=== PATIENT | male | born 1975 | race Caucasian/White ===

== ENCOUNTER 2025-03-29 16:04 | Inpatient (IN) ==
[2025-03-29 17:10] LABS: Hematocrit (blood only) 46.8 % (42.0-52.0); Hemoglobin 16.7 g/dL (14.0-18.0); Immature Granulocytes # (auto) 0.02 K/uL (0.01-0.20); Immature Granulocytes % (auto) 0.2 %; Mean Corpuscular Hemoglobin 29.7 pg (25.0-34.0); Mean Corpuscular Volume 83.1 fL (80.0-100.0); Platelet Count 290 K/uL (130-400); RDW Standard Deviation 36.4 fL (36.4-46.3); Red Blood Count 5.63 M/uL (4.70-6.10); White Blood Count 8.77 K/ul (4.8-10.8)
[2025-03-29 17:39] LABS: Alanine Aminotransferase 22.0 U/L (7-52); Albumin Globulin Ratio 1.1 (0.9-2); Albumin Level 3.8 gm/dl (3.4-5.0); Alkaline Phosphatase 94.0 U/L (34-104); Anion Gap 8.0 (3-11); Bilirubin,Total 0.5 mg/dl (0.2-1.0); Blood Urea Nitrogen 22.0 mg/dl (6-23); Calcium 9.3 mg/dl (8.6-10.3); Carbon Dioxide 24.0 mmol/L (21-32); Chloride 93.0 mmol/L (98-107); Creatinine Clr Calc Pharmacy 86.6 ml/min; Globulin 3.4 gm/dl (2.5-4.0); Glucose 650.0 mg/dl (70-99(Fasting)); Potassium 4.9 mmol/L (3.5-5.1); Sodium 125.0 mmol/L (136-145); Total Protein 7.2 gm/dl (6.0-8.3)
[2025-03-29] MEDS: SODIUM CHLORIDE 0.9% 1,000 ML IV SCH ×2 (18:08→22:45)
[2025-03-29 18:11] LABS: Magnesium 1.9 mg/dl (1.7-2.4)
[2025-03-29 18:13] LABS: Hemoglobin A1C 14.3 % (4.5-5.6)
[2025-03-29] MEDS ORDERED: VANCOMYCIN CONSULT ACTIVE PRN (18:51)
--- NOTE | 2025-03-29 19:16 | XRay Report ---
2 views of the right index finger are submitted for review. Comparison is made to the prior examination dated 03/08/2025 Findings: There is new cortical destruction of the tuft and distal shaft of the index finger distal phalanx, concerning for acute osteomyelitis No subluxation or dislocation is seen. No significant arthritic changes are noted. No other osseous abnormality is identified. There are no radiopaque foreign bodies. Impression: Suspected acute osteomyelitis of the right index finger distal phalanx ACT 112: Positive. There are findings on this exam that require communication between the performing entity and the patient following Patient Test Result Information Act ([place] ACT 112) guidelines. Electronically signed by Stefano Swanson 03-29-2025 7:15 PM
--- NOTE | 2025-03-29 19:39 | Emergency Department Note ---
Impression & Plan Uncontrolled type 2 diabetes mellitus, Osteomyelitis ED Provider Note CHIEF COMPLAINT: Right index finger infection HISTORY OF PRESENT ILLNESS: This 49-year-old male patient with significant past medical history of type 2 diabetes, uncontrolled, presents to the emergency department via private vehicle for evaluation of right index finger infection. The patient states about a month ago, he slammed his finger in a car door. He was subsequently seen here several days later and diagnosed with an infection. He had this incised and drained and was diagnosed with a fracture of the distal phalanx. The patient was placed on antibiotics which he states he took. He states the swelling has gotten worse. He notes that he was seen by his primary care provider and ultimately referred to the emergency department for additional imaging. The patient states there has not been any drainage, but he notes he feels that it needs to drain. He denies any fever or chills. He has not been consistently taking his diabetes medications. Patient denies any body aches or systemic symptoms. He denies any new injury or bleeding. History provided by: Patient, chart review REVIEW OF SYSTEMS: A 10 system review of systems was performed with positives and pertinent negatives listed in the history of present illness. All other systems were reviewed and are negative. ALLERGIES: Penicillin PHYSICAL EXAM: VITALS: Vitals are noted on the nurse's note and reviewed by myself. GENERAL: This is a 49-year-old male, disheveled in appearance, in no acute distress, nondiaphoretic, well-developed well-nourished. SKIN: Erythema and edema with scab on the lateral nail fold of the right index finger. After unroofing of the scab, purulent discharge was expressed. No tenderness to palpation. The nail is pulling away from the nailbed. The skin was without rashes, erythema, edema, or bruising. There is no tenting of the skin. Capillary refill less than 2 seconds. HEAD: Normocephalic atraumatic. EYES: Conjunctivae without injection, sclerae without icterus. Extraocular movements intact. MOUTH: Mucous membranes moist. NECK: Supple without nuchal rigidity. No lymphadenopathy. HEART: Regular rate and rhythm without murmurs gallops or rubs. LUNGS: Clear to auscultation bilaterally without wheezes, rales or rhonchi. No retractions or accessory muscle use. MUSCULOSKELETAL: No muscle atrophy, erythema, or edema noted. Full range of motion without joint tenderness in all extremities. No tenderness to palpation. Normal gait. Strength 5/5 throughout. NEURO: Patient was alert and oriented to person place and time. Diminished sensation to light and sharp touch. An order was placed for continuous monitor technician. The monitor showed sinus tachycardia at a ventricular rate of 124 bpm, per my interpretation. Imaging as interpreted by myself and the radiologist revealed findings concerning for osteomyelitis of the right index finger, with radiologist interpretation as above. I agree with the radiologist's findings as based upon my independent interpretation. EMERGENCY DEPARTMENT COURSE: The patient was evaluated as above. The patient presents to the emergency department for right index finger infection. This started after an injury where he slammed his finger in a car door about a month ago. He was seen here and had paronychia drained and was started on antibiotics. He never followed up as an outpatient until he saw his primary care provider this week. On initial evaluation the patient does have edema and erythema of the distal aspect of the right index finger. After unroofing of a scab, a moderate amount of pus was expressed. This was cultured and sent to the lab for testing. Of note, the patient denied any pain and states he did not have any sensation during this procedure. IV access was obtained, labs were drawn. Labs reviewed. Per my interpretation, no leukocytosis or anemia. No thrombocytopenia. Renal, hepatic function and electrolytes without significant abnormality. Blood glucose significantly elevated at 650. Repeat blood glucose on glucometer about 400. Patient was hydrated with 2 L of IV fluids. He was started on cefazolin and vancomycin. I discussed the case with Cam Herrera PA-C with orthopedics. He did discuss the case with Dr. Bass. Decision was made for the patient to be admitted to medicine service due to the hyperglycemia. He is to be started on antibiotics. The patient will be consulted on tomorrow by Dr. Corcoran to determine next steps from a possible surgical standpoint. [facility] the [facility]. [facility] Please see hospitalist dictation regarding ongoing management of this patient. Case was discussed with the attending physician. This visit is during a period of high volume and high acuity in the emergency department. I attest that I have personally reviewed the patient medication list. I attest that I have reviewed the patient's blood pressure and it was found to be elevated. Further management by hospitalist GCS: 15 In the evaluation and treatment of this patient the following differential diagnoses were entertained: Cellulitis, osteomyelitis, abscess, MRSA infection, DVT, necrotizing fasciitis, dermatitis, drug eruption, allergic reaction, as well as other pathologies. The chart was completed utilizing Hello [employer] Speech voice recognition software. Grammatical errors, random word insertions, pronoun errors, and incomplete sentences are an occasional consequence of this system due to software limitations, ambient noise, and hardware issues. Any formal questions or concerns about the content, text, or information contained within the body of this dictation should be directly addressed to the provider for clarification. Past Med/Surg History Problem List (Updated 03/29/25 @ 23:09 by Benita Elliott PA-C) Osteomyelitis (Acute) No significant past surgical history Depression GERD (gastroesophageal reflux disease) Foamy urine Blurry vision, bilateral Uncontrolled type 2 diabetes mellitus (Acute) Type 2 diabetes mellitus Cellulitis Diabetes Hypertension Social History Smoking Status: Never smoker Preferred Language: Swedish Feels Safe at Home: Yes Allergies Allergies Allergy/AdvReac Type Severity Reaction Status Date / Time Penicillins Allergy Unknown HOMICIDAL,HEAD Verified 04/18/20 13:42 TINGLY Home Meds Home Medications Medication Instructions Recorded Confirmed carvedilol 12.5 mg tablet 12.5 mg PO BID 03/29/25 03/29/25 gabapentin 100 mg capsule 100 mg PO HS 03/29/25 03/29/25 glipizide 10 mg tablet, extended 20 mg PO DAILY 03/29/25 03/29/25 release 24 hr lisinopril 40 mg tablet 40 mg PO DAILY 03/29/25 03/29/25 metformin 500 mg tablet 1,000 mg PO BID 03/29/25 03/29/25 semaglutide 0.25 mg or 0.5 mg (2 0.5 mg subcut WK 03/29/25 03/29/25 mg/3 mL) subcutaneous pen injector (Ozempic) sulfamethoxazole 800 1 tab PO BID 03/29/25 03/29/25 mg-trimethoprim 160 mg tablet (Bactrim DS) Previous Rx's Medication Instructions Recorded PlexTouch Ultra Blue Test Strip #300 ea 04/30/20 (blood sugar diagnostic) OneTouch UltraSoft Lancets #300 ea 04/30/20 (lancets) Results & Data (ED) Vital Signs Vital Signs - 24 hr 03/29/25 16:10 03/29/25 16:46 03/29/25 17:00 Temperature 36.8 C Temperature Source Temporal Artery Scan Pulse Rate 128 H 128 H 130 H Pulse Rate from SpO2 Sensor Respiratory Rate 18 24 Respiratory Effort / Characteristics Non-Labored Respiratory Depth Normal Respiratory Pattern Regular Blood Pressure 167/102 H 170/124 H Blood Pressure Mean 123 135 Pulse Oximetry 98 96 Oxygen Delivery Method Room Air Room Air Sepsis Recent Fever Within 48 Hours No Sepsis New/Unexplained Change in Mental Status N/A Sepsis Action Taken by Nursing No Action Required 03/29/25 18:09 03/29/25 18:30 03/29/25 19:00 Temperature Temperature Source Pulse Rate 130 H 125 H 130 H Pulse Rate from SpO2 Sensor 125 H 129 H Respiratory Rate 19 18 24 Respiratory Effort / Characteristics Respiratory Depth Respiratory Pattern Blood Pressure 157/112 H 164/113 H 159/110 H Blood Pressure Mean 127 130 126 Pulse Oximetry 95 96 97 Oxygen Delivery Method Room Air Room Air Room Air Sepsis Recent Fever Within 48 Hours Sepsis New/Unexplained Change in Mental Status Sepsis Action Taken by Nursing 03/29/25 19:42 03/29/25 20:00 03/29/25 20:30 Temperature Temperature Source Pulse Rate 122 H 120 H Pulse Rate from SpO2 Sensor 127 H 120 H Respiratory Rate 21 21 18 Respiratory Effort / Characteristics Respiratory Depth Respiratory Pattern Blood Pressure 160/120 H 161/105 H 161/129 H Blood Pressure Mean 133 123 139 Pulse Oximetry 98 100 98 Oxygen Delivery Method Room Air Room Air Room Air Sepsis Recent Fever Within 48 Hours Sepsis New/Unexplained Change in Mental Status Sepsis Action Taken by Nursing 03/29/25 21:00 03/29/25 21:42 03/29/25 21:45 Temperature Temperature Source Pulse Rate 127 H 124 H 124 H Pulse Rate from SpO2 Sensor 127 H 125 H Respiratory Rate 20 24 Respiratory Effort / Characteristics Respiratory Depth Respiratory Pattern Blood Pressure 175/112 H 179/110 H Blood Pressure Mean 133 133 Pulse Oximetry 100 98 Oxygen Delivery Method Room Air Room Air Sepsis Recent Fever Within 48 Hours Sepsis New/Unexplained Change in Mental Status Sepsis Action Taken by Nursing Laboratory Data 03/29/25 22:21 03/29/25 16:39 Lab Results 03/29/25 03/29/25 03/29/25 Range/Units 16:39 18:30 21:52 WBC 8.77 (4.8-10.8) K/ul RBC 5.63 (4.70-6.10) M/uL Hgb 16.7 (14.0-18.0) g/dL Hct 46.8 (42.0-52.0) % MCV 83.1 (80.0-100.0) fL MCH 29.7 (25.0-34.0) pg MCHC 35.7 (32.0-36.0) g/dL RDW Std Deviation 36.4 (36.4-46.3) fL RDW Coeff of Dominick 11.9 (11.5-14.5) % Plt Count 290 (130-400) K/uL MPV 11.3 (9.4-12.4) fL Immature Gran % (Auto) 0.2 % Neut % (Auto) 69.4 % Lymph % (Auto) 23.0 % [place] % (Auto) 6.5 % Eos % (Auto) 0.2 % Baso % (Auto) 0.7 % Neut # (Auto) 6.08 (1.40-6.50) K/uL Lymph # (Auto) 2.02 (1.20-3.40) K/uL [place] # (Auto) 0.57 (0.11-0.59) K/uL Eos # (Auto) 0.02 (0.00-0.50) K/uL Baso # (Auto) 0.06 (0.00-0.20) K/uL Immature Gran # (Auto) 0.02 (0.01-0.20) K/uL VBG pH (7.36-7.41) VBG pCO2 (38-50) mmHg VBG pO2 mmHg VBG HCO3 mmol/L VBG O2 Saturation % VBG Base Excess mEq/L Sodium 125 L (136-145) mmol/L Potassium 4.9 (3.5-5.1) mmol/L Chloride 93 L (98-107) mmol/L Carbon Dioxide 24 (21-32) mmol/L Anion Gap 8 (3-11) BUN 22 (6-23) mg/dl Creatinine 1.05 (0.6-1.4) mg/dl Est Cr Clr Drug Dosing 86.6 ml/min eGFR 86.48 BUN/Creatinine Ratio 21.0 H (10-20) Glucose 650 H* (70-99(Fasting)) mg/dl POC Glucose 392 H* 292 H (70-99) mg/dl Estimat Average Glucose 364 mg/dl Hemoglobin A1c 14.3 H (4.5-5.6) % Lactate (0.4-2.0) mmol/L Calcium 9.3 (8.6-10.3) mg/dl Magnesium 1.9 (1.7-2.4) mg/dl Total Bilirubin 0.5 (0.2-1.0) mg/dl AST 19 (13-39) U/L ALT 22 (7-52) U/L Alkaline Phosphatase 94 (34-104) U/L Total Protein 7.2 (6.0-8.3) gm/dl Albumin 3.8 (3.4-5.0) gm/dl Globulin 3.4 (2.5-4.0) gm/dl Albumin/Globulin Ratio 1.1 (0.9-2) 03/29/25 Range/Units 22:21 WBC 8.39 (4.8-10.8) K/ul RBC 5.31 (4.70-6.10) M/uL Hgb 15.7 (14.0-18.0) g/dL Hct 44.2 (42.0-52.0) % MCV 83.2 (80.0-100.0) fL MCH 29.6 (25.0-34.0) pg MCHC 35.5 (32.0-36.0) g/dL RDW Std Deviation 36.3 L (36.4-46.3) fL RDW Coeff of Dominick 12.0 (11.5-14.5) % Plt Count 290 (130-400) K/uL MPV 10.9 (9.4-12.4) fL Immature Gran % (Auto) 0.2 % Neut % (Auto) 60.6 % Lymph % (Auto) 31.6 % [place] % (Auto) 6.4 % Eos % (Auto) 0.6 % Baso % (Auto) 0.6 % Neut # (Auto) 5.08 (1.40-6.50) K/uL Lymph # (Auto) 2.65 (1.20-3.40) K/uL [place] # (Auto) 0.54 (0.11-0.59) K/uL Eos # (Auto) 0.05 (0.00-0.50) K/uL Baso # (Auto) 0.05 (0.00-0.20) K/uL Immature Gran # (Auto) 0.02 (0.01-0.20) K/uL VBG pH 7.41 (7.36-7.41) VBG pCO2 35 L (38-50) mmHg VBG pO2 55 mmHg VBG HCO3 22 mmol/L VBG O2 Saturation 90.6 % VBG Base Excess -1.9 mEq/L Sodium (136-145) mmol/L Potassium (3.5-5.1) mmol/L Chloride (98-107) mmol/L Carbon Dioxide (21-32) mmol/L Anion Gap (3-11) BUN (6-23) mg/dl Creatinine (0.6-1.4) mg/dl Est Cr Clr Drug Dosing ml/min eGFR BUN/Creatinine Ratio (10-20) Glucose (70-99(Fasting)) mg/dl POC Glucose (70-99) mg/dl Estimat Average Glucose mg/dl Hemoglobin A1c (4.5-5.6) % Lactate 1.4 (0.4-2.0) mmol/L Calcium (8.6-10.3) mg/dl Magnesium (1.7-2.4) mg/dl Total Bilirubin (0.2-1.0) mg/dl AST (13-39) U/L ALT (7-52) U/L Alkaline Phosphatase (34-104) U/L Total Protein (6.0-8.3) gm/dl Albumin (3.4-5.0) gm/dl Globulin (2.5-4.0) gm/dl Albumin/Globulin Ratio (0.9-2) Administered Medications Sodium Chloride (Nss) 1,000 mls @ 125 mls/hr IV .Q8H SYLVIE Stop: 04/01/25 21:44 Last Admin: 03/29/25 22:45 Dose: 125 mls/hr Documented By: KRC Discontinued Medications Sodium Chloride (Nss) 1,000 mls @ 999 mls/hr IV .Q1H1M SYLVIE Stop: 03/29/25 20:00 Last Infusion: 03/29/25 21:56 Dose: Infused Documented By: FRANCISCO J Admin: 03/29/25 19:30 Dose: 999 mls/hr Documented By: FRANCISCO J Infusion: 03/29/25 19:09 Dose: Infused Documented By: FRANCISCO J Admin: 03/29/25 18:08 Dose: 999 mls/hr Documented By: FRANCISCO J Cefazolin Sodium (Ancef 2000mg) 2,000 mg in 15 mls @ 3.75 mls/min IV NOW STA Stop: 03/29/25 18:54 Last Admin: 03/29/25 19:30 Dose: 3.75 mls/min Documented By: FRANCISCO J Vancomycin HCl 2,000 mg/ (Sodium Chloride) 540 mls @ 200 mls/hr IV NOW ONE Stop: 03/29/25 21:32 Last Admin: 03/29/25 20:00 Dose: 200 mls/hr Documented By: FRANCISCO J Insulin Aspart (Insulin Aspart Per Unit Charge) 8 units SC NOW STA Stop: 03/29/25 22:24 Last Admin: 03/29/25 22:38 Dose: 8 units Documented By: FRANCISCO J Co-signed By: ESTHER Imaging Data Radiologist's Impression: Finger X-Ray 03/29/25 17:36 2 views of the right index finger are submitted for review. Comparison is made to the prior examination dated 03/08/2025 Findings: There is new cortical destruction of the tuft and distal shaft of the index finger distal phalanx, concerning for acute osteomyelitis No subluxation or dislocation is seen. No significant arthritic changes are noted. No other osseous abnormality is identified. There are no radiopaque foreign bodies. Impression: Suspected acute osteomyelitis of the right index finger distal phalanx ACT 112: Positive. There are findings on this exam that require communication between the performing entity and the patient following Patient Test Result Information Act ([place] ACT 112) guidelines. Electronically signed by Stefano wSanson 03-29-2025 7:15 PM Discharge Plan Visit Data Chief Complaint: Referred by Doctor Stated Complaint: RT HAND POINTER FINGER DOC REFERRAL ED Provider: Harry Ray ED Midlevel Provider: Benita Elliott Discharge Problem: Uncontrolled type 2 diabetes mellitus, Osteomyelitis Patient Disposition: Admitted As Inpatient Condition: Good Discharge Instructions Interventions: ED Discharge Assessment Last Done: 03/29/25 22:56 Forms Stand Alone Forms: Important Visit Information Prescriptions Prescriptions: No Action (DME) OneTouch Ultra Blue Test Strip Strip See Rx Instructions .ROUTE .MEDSUPPLY Qty: 300 3RF Rx Instructions: Test blood sugars three times a day (DME) lancets [OneTouch UltraSoft Lancets] Misc See Rx Instructions .ROUTE .MEDSUPPLY Qty: 300 3RF Rx Instructions: Test blood sugars three times a day metformin 500 mg tablet 1,000 mg PO BID carvedilol 12.5 mg tablet 12.5 mg PO BID glipizide 10 mg tablet extended release 24hr 20 mg PO DAILY sulfamethoxazole-trimethoprim [Bactrim DS] 800-160 mg tablet 1 tab PO BID Rx Instructions: prescribed 03/29/2025 for 10 day supply; not picked up from RX per [facility] gabapentin 100 mg capsule 100 mg PO HS lisinopril 40 mg tablet 40 mg PO DAILY Ozempic 0.25 mg or 0.5 mg (2 mg/3 mL) pen injector 0.5 mg SUBCUT WK
[2025-03-29] MEDS: VANCOMYCIN HCL 2,000 MG in SODIUM CHLORIDE 0.9% 500 ML IV ONE (20:00)
[2025-03-29] MEDS ORDERED: POLYETHYLENE (MIRALAX) 17 GM PACK PO PRN (21:24)
[2025-03-29] MEDS ORDERED: CARBOHYDRATES FOR HYPOGLYCEMIA PO PRN (21:24)
[2025-03-29] MEDS ORDERED: MELATONIN 3 MG TAB PO PRN (21:24)
[2025-03-29] MEDS ORDERED: GLUCOSE 40% GEL 15 GM TUBE PO PRN (21:24)
[2025-03-29] MEDS ORDERED: MAGNESIUM HYDROXIDE SUSP 30 ML UDC PO PRN (21:24)
[2025-03-29] MEDS ORDERED: ONDANSETRON INJ 2 MG/ML 2 ML VIAL IV PRN (21:24)
[2025-03-29] MEDS ORDERED: GLUCOSE 10 TAB/TUBE PO PRN (21:24)
[2025-03-29] MEDS ORDERED: ACETAMINOPHEN 500 MG TAB PO PRN (21:24)
[2025-03-29] MEDS ORDERED: DEXTROSE 50% 50 ML SYRINGE IV PRN (21:24)
[2025-03-29] MEDS ORDERED: GLUCAGON FOR INJ 1 MG VIAL SQ PRN (21:24)
[2025-03-29] MEDS ORDERED: ALUMINUM/MAGNESIUM SUSP 30 ML UDC PO PRN (21:24)
--- NOTE | 2025-03-29 22:09 | History & Physical Report ---
Date of Service March 29, 2025 Assessment & Plan (1) Osteomyelitis: (2) Uncontrolled type 2 diabetes mellitus: (3) Type 2 diabetes mellitus: (4) GERD (gastroesophageal reflux disease): (5) Hypertension: (6) Infected finger: (7) Failure of outpatient treatment: Plan 49 yo male PMHx uncontrolled T2DM, HTN, GERD, depression presented to ER by request of his PCP due to R index finger swelling/infection and found to have profound hyperglycemia #R-Distal Phalanx Infection/Likely Ostomyelitis/Failure of Outpatient treatment XR demonstrates likely osteomyelitis of distal R index finger Patient completed course of Keflex outpatient without resolution and with worsening symtpoms per his report Will continue with Vancomycin, add Cefepime in setting of uncontrolled diabetes Orthopedics consulted for evaluation, potential surgical intervention Pain control as needed Monitor for fevers and trend CBC #Hyperglycemia/Uncontrolled T2DM States that he missed his medications yesterday and today Does not appear to be in DKA - no significant anion gap A1c checked in ER was 14.3% Hold home medications Will start Lantus weight based Repeat BSG at time of admission 292 - will give 8U Novolog now Trend glucose q2h and cover with NovoLog Once within range will transition to ISS w/BSG ACHS Goal 110-160, CF 15, CR 6 Will recheck CMP, check lactate, mag, and VBG Will benefit from medical educator and possible discharge with insulin therapy given severity of A1c #HTN Hold lisinopril in setting of hyperkalemia Continue carvedilol NIKHILI: T2DM diet, continue NSS @125/hr Code status: full DVT prophylaxis: SCDs - defer chemical pending surgical evaluation Disposition: PCU History of Present Illness Primary Care Provider: Claudio Matthew PA-C 49 yo male PMHx uncontrolled T2DM, HTN, GERD, depression presented to ER by request of his PCP due to R index finger swelling/infection and found to have profound hyperglycemia He was first seen on 03/06 for finger injury after slamming his finger in the door of his car a few days prior. He was evaluated, had I&D of infected distal phalanx, found to have fracture, and was discharged on a course of Keflex. He states that he did finish this course of antibiotics. In the interim, he states that the swelling has gotten worse. He was seen again today at his PCPs office who prescribed a course of Bactrim and repeat XR of the finger was ordered. Given findings on XR pt was instructed to come the the ER for further evaluation. Upon presentation to the ER the patient was found to be profoundly hyperglycemic. He denies any pain in his right index finger but does feel that there is a fluid collection. He denies CP, SOB, abd pain, N/V/D a the time of admission. ED Course: XR of finger shows evidence of osteomyelitis of the distal phalanx of the R index finger Labs reveal no leukocytosis, hyperglycemia to 650, A1c 14.3%, no significant anion gap, hyponatremia (corrects to 138 when hyperglycemia is accounted for), mild hyperkalemia, otherwise without significant abnormalities Given 2L NSS, vancomycin, and Ancef in the ER Allergies Allergy/AdvReac Type Severity Reaction Status Date / Time Penicillins Allergy Unknown HOMICIDAL,HEAD Verified 04/18/20 13:42 TINGLY Home Medications Medication Instructions Recorded Confirmed Type OneTouch Ultra Blue Test Strip #300 ea 04/30/20 Rx (blood sugar diagnostic) OneTouch UltraSoft Lancets #300 ea 04/30/20 Rx (lancets) carvedilol 12.5 mg tablet 12.5 mg PO BID 03/29/25 03/29/25 History gabapentin 100 mg capsule 100 mg PO HS 03/29/25 03/29/25 History glipizide 10 mg tablet, extended 20 mg PO DAILY 03/29/25 03/29/25 History release 24 hr lisinopril 40 mg tablet 40 mg PO DAILY 03/29/25 03/29/25 History metformin 500 mg tablet 1,000 mg PO BID 03/29/25 03/29/25 History semaglutide 0.25 mg or 0.5 mg (2 0.5 mg subcut WK 03/29/25 03/29/25 History mg/3 mL) subcutaneous pen injector (Ozempic) sulfamethoxazole 800 1 tab PO BID 03/29/25 03/29/25 History mg-trimethoprim 160 mg tablet (Bactrim DS) Past Med/Surg History Problem List (Updated 03/30/25 @ 05:16 by Delio Kern DO) Failure of outpatient treatment Infected finger Osteomyelitis (Acute) No significant past surgical history Depression GERD (gastroesophageal reflux disease) Foamy urine Blurry vision, bilateral Uncontrolled type 2 diabetes mellitus (Acute) Type 2 diabetes mellitus Cellulitis Diabetes Hypertension Social History Smoking Status: Never smoker Tobacco Type: Smokeless Tobacco (Dip or Chew) Second Hand Exposure: No; Do You Dip or Chew Tobacco: Yes; Tobacco Cessation Education Requested by Patient: No Hx Alcohol Use: No Hx Substance Use: No Preferred Language: Trinidadian Communication Ability: Effective Utility Spray Operator Required: No Beliefs That Will Affect Care: None Current Living Situation: Alone Other Information That Helps Us Care for You: No Feels Safe at Home: Yes Safety Concerns: Feels Safe At This Time Assistive Devices: None Review of Systems Review of Systems: reviewed, per HPI Physical Exam Physical Exam: Constitutional: appears older than age, disheveled HEENT: NCAT, no conjunctival injection CV: regular rhythm, no murmur appreciated, extremities well-perfused, no LE edema Resp: CTABL, no wheezes/rales/rhonchi appreciated, no increased work of breathing GI: nondistended MSK: swelling to distal phalanx of right index finger, nail macerated, fluctuance appreciated below surface, no calor or erythema, not TTP Skin: warm, dry, no rash appreciated Neuro: alert, oriented, no focal neurologic deficit appreciated Results & Data Results & Data Vital Signs (Past 12 Hours) Vital Signs Temp Pulse Resp BP Pulse Ox O2 Del Method 03/29/25 21:45 124 H 03/29/25 21:42 124 H 24 179/110 H 98 Room Air 03/29/25 21:00 127 H 20 175/112 H 100 Room Air 03/29/25 20:30 120 H 18 161/129 H 98 Room Air 03/29/25 20:00 122 H 21 161/105 H 100 Room Air 03/29/25 19:42 21 160/120 H 98 Room Air 03/29/25 19:00 130 H 24 159/110 H 97 Room Air 03/29/25 18:30 125 H 18 164/113 H 96 Room Air 03/29/25 18:09 130 H 19 157/112 H 95 Room Air 03/29/25 17:00 130 H 24 170/124 H 96 Room Air 03/29/25 16:46 128 H 03/29/25 16:10 36.8 C 128 H 18 167/102 H 98 Room Air Code Status & VTE Plan VTE Prophylaxis Plan VTE Prophylaxis will be ordered: Yes Resident Activity Tracking Resident Involvement: Resident Care Provided Care Provided: Adult Hospital Medicine
[2025-03-29] MEDS: INSULIN ASPART PER UNIT CHARGE SC STA (22:38)
[2025-03-29 22:46] LABS: Base Excess VBG -1.9 mEq/L; HCO3 VBG 22 mmol/L; Oxygen Saturation VBG 90.6 %; PCO2 VBG 35 mmHg (38-50); PO2 VBG 55 mmHg; pH VBG 7.41 (7.36-7.41)
[2025-03-29 22:50] LABS: Hematocrit (blood only) 44.2 % (42.0-52.0); Hemoglobin 15.7 g/dL (14.0-18.0); Immature Granulocytes # (auto) 0.02 K/uL (0.01-0.20); Immature Granulocytes % (auto) 0.2 %; Mean Corpuscular Hemoglobin 29.6 pg (25.0-34.0); Mean Corpuscular Volume 83.2 fL (80.0-100.0); Platelet Count 290 K/uL (130-400); RDW Standard Deviation 36.3 fL (36.4-46.3); Red Blood Count 5.31 M/uL (4.70-6.10); White Blood Count 8.39 K/ul (4.8-10.8)
[2025-03-29 23:24] LABS: Alanine Aminotransferase 18.0 U/L (7-52); Albumin Globulin Ratio 1.2 (0.9-2); Albumin Level 3.8 gm/dl (3.4-5.0); Alkaline Phosphatase 77.0 U/L (34-104); Anion Gap 8.0 (3-11); Bilirubin,Total 0.4 mg/dl (0.2-1.0); Blood Urea Nitrogen 20.0 mg/dl (6-23); Calcium 8.7 mg/dl (8.6-10.3); Carbon Dioxide 22.0 mmol/L (21-32); Chloride 103.0 mmol/L (98-107); Creatinine Clr Calc Pharmacy 93.8 ml/min; Globulin 3.1 gm/dl (2.5-4.0); Glucose 318.0 mg/dl (70-99(Fasting)); Magnesium 1.7 mg/dl (1.7-2.4); Potassium 4.0 mmol/L (3.5-5.1); Sodium 133.0 mmol/L (136-145); Total Protein 6.9 gm/dl (6.0-8.3)
[2025-03-29] MEDS: CEFEPIME 2000MG 2,000 MG/20 ML SYR IV SCH (23:44)
[2025-03-30] MEDS: INSULIN ASPART PER UNIT CHARGE SC STA ×2 (00:12→01:14)
--- NOTE | 2025-03-30 04:11 | Discharge Summary ---
Date of Service March 30, 2025 Admission HPI Per Admitting Provider 49 yo male PMHx uncontrolled T2DM, HTN, GERD, depression presented to ER by request of his PCP due to R index finger swelling/infection and found to have profound hyperglycemia He was first seen on 03/06 for finger injury after slamming his finger in the door of his car a few days prior. He was evaluated, had I&D of infected distal phalanx, found to have fracture, and was discharged on a course of Keflex. He st ates that he did finish this course of antibiotics. In the interim, he states that the swelling has gotten worse. He was seen again today at his PCPs office who prescribed a course of Bactrim and repeat XR of the finger was ordered. Given findings on XR pt was instructed to come the the ER for further evaluation. Upon presentation to the ER the patient was found to be profoundly hyperglycemic. He denies any pain in his right index finger but does feel that there is a fluid collection. He denies CP, SOB, abd pain, N/V/D a the time of admission. ED Course: XR of finger shows evidence of osteomyelitis of the distal phalanx of the R index finger Labs reveal no leukocytosis, hyperglycemia to 650, A1c 14.3%, no significant anion gap, hyponatremia (corrects to 138 when hyperglycemia is accounted for), mild hyperkalemia, otherwise without significant abnormalities Given 2L NSS, vancomycin, and Ancef in the ER Admission Exam Per Admitting Provider Constitutional: appears older than age, disheveled HEENT: NCAT, no conjunctival injection CV: regular rhythm, no murmur appreciated, extremities well-perfused, no LE edema Resp: CTABL, no wheezes/rales/rhonchi appreciated, no increased work of breathing GI: nondistended MSK: swelling to distal phalanx of right index finger, nail macerated, fluctuance appreciated below surface, no calor or erythema, not TTP Skin: warm, dry, no rash appreciated Neuro: alert, oriented, no focal neurologic deficit appreciated Principal Diagnosis R-distal phalanx osteomyelitis, hyperglycemia Discharge Exam Constitutional: appears older than age, disheveled HEENT: NCAT, no conjunctival injection CV: regular rhythm, no murmur appreciated, extremities well-perfused, no LE edema Resp: CTABL, no wheezes/rales/rhonchi appreciated, no increased work of breathing GI: nondistended MSK: swelling to distal phalanx of right index finger, nail macerated, fluctuance appreciated below surface, no calor or erythema, not TTP Skin: warm, dry, no rash appreciated Neuro: alert, oriented, no focal neurologic deficit appreciated Discharge Data Allergies Allergy/AdvReac Type Severity Reaction Status Date / Time Penicillins Allergy Unknown HOMICIDAL,HEAD Verified 04/18/20 13:42 TINGLY Consultations 03/29/25 20:47 ED Decision to Admit Stat 03/29/25 21:33 Consult Orthopedic Surgery Routine Hospital Course (1) Osteomyelitis: (2) Uncontrolled type 2 diabetes mellitus: (3) Type 2 diabetes mellitus: (4) GERD (gastroesophageal reflux disease): (5) Hypertension: (6) Infected finger: (7) Failure of outpatient treatment: Plan Patient arrived to floor, requested a sandwich, and to bath. Soon after, I was notified by his primary nurse that he requested to leave AMA. Both myself and the primary nurse explained to the patient that if he were to leave his finger infection would likely get worse and his blood sugar would remain uncontrolled. I explained that given his high glucose on presentation to the hospital there was a high likelihood of DKA, that he could fall into a diabetic coma, and that was a possibility. He expressed understanding and signed AMA form given to him by the nurse. He was prescribed a course of Bactrim by his PCP on the same day he presented to the emergency department. He was strongly encouraged to fill and complete this prescription and to follow up with his PCP. He is encouraged to present to [facility] or the closest emergency room with any worsening or concerning symptoms. 49 yo male PMHx uncontrolled T2DM, HTN, GERD, depression presented to ER by request of his PCP due to R index finger swelling/infection and found to have profound hyperglycemia #R-Distal Phalanx Infection/Likely Ostomyelitis/Failure of Outpatient treatment XR demonstrates likely osteomyelitis of distal R index finger Patient completed course of Keflex outpatient without resolution and with worsening symtpoms per his report Will continue with Vancomycin, add Cefepime in setting of uncontrolled diabetes Orthopedics consulted for evaluation, potential surgical intervention Pain control as needed Monitor for fevers and trend CBC #Hyperglycemia/Uncontrolled T2DM States that he missed his medications yesterday and today Does not appear to be in DKA - no significant anion gap A1c checked in ER was 14.3% Hold home medications Will start Lantus weight based Repeat BSG at time of admission 292 - will give 8U Novolog now Trend glucose q2h and cover with NovoLog Once within range will transition to ISS w/BSG ACHS Goal 110-160, CF 15, CR 6 Will recheck CMP, check lactate, mag, and VBG Will benefit from adult educator and possible discharge with insulin therapy given severity of A1c #HTN Hold lisinopril in setting of hyperkalemia Continue carvedilol BRENDA: T2DM diet, continue NSS @125/hr Code status: full DVT prophylaxis: SCDs - defer chemical pending surgical evaluation Disposition: PCU Total Time Total Time Spent Total Time Spent (In Minutes): see attending documentation Discharge Plan Discharge Items Patient Disposition: Against Medical Advice Reason For Visit: R INDEX FINGER OSTEO, HYPERGLYCEMIA Condition on Discharge: Fair Activity: Resume your previous activity Non-emergency contact: Primary Care Provider Follow-up/Referrals: Claudio Matthew PA-C [Primary Care Provider] - Pending Studies at Discharge: No Stand-Alone Forms: [facility], Important Visit Information Medications and DC Order Prescriptions: Continued (DME) OneTouch Ultra Blue Test Strip Strip See Rx Instructions .ROUTE .MEDSUPPLY Qty: 300 3RF Rx Instructions: Test blood sugars three times a day (DME) lancets [OneTouch UltraSoft Lancets] [facility] [place] See Rx Instructions .ROUTE .MEDSUPPLY Qty: 300 3RF Rx Instructions: Test blood sugars three times a day metformin 500 mg tablet 1,000 mg PO BID carvedilol 12.5 mg tablet 12.5 mg PO BID glipizide 10 mg tablet extended release 24hr 20 mg PO DAILY sulfamethoxazole-trimethoprim [Bactrim DS] 800-160 mg tablet 1 tab PO BID Rx Instructions: prescribed 03/29/2025 for 10 day supply; not picked up from RX per [facility] gabapentin 100 mg capsule 100 mg PO HS lisinopril 40 mg tablet 40 mg PO DAILY Ozempic 0.25 mg or 0.5 mg (2 mg/3 mL) pen injector 0.5 mg SUBCUT WK Discharge Orders: Left Against Medical Advice (Routine); Ordered 03/30/25 Ordered By: Delio Kern Admission Data Admit Date/Time: 03/29/25 21:24 Attending Provider: David Yanez Admit Provider: Delio Kern Primary Care Provider: Claudio Mattehw Other Providers: Marlo Uribe; Angel Bass Resident Activity Tracking Resident Involvement: Resident Care Provided Care Provided: Adult [facility]
[2025-03-30] MEDS ORDERED: VANCOMYCIN HCL 1,250 MG in SODIUM CHLORIDE 0.9% 250 ML IV SCH (06:00)
[2025-03-30] MEDS ORDERED: INSULIN ASPART PER UNIT CHARGE SC SCH (07:30)
[2025-03-30] MEDS ORDERED: LANTUS PER UNIT CHARGE SQ SCH (09:00)
[2025-03-30 12:24] LABS: A calco-baum cmplx NotReported Not Detected (NotDetected); Bact fragilis Not Reported Not Detected (NotDetected); Blood Culture Id Panel See PCR Comment (NotDetected); C auris Not Reported Not Detected (NotDetected); Calbicans Not Reported Not Detected (NotDetected); Candida glabrata Not Reported Not Detected (NotDetected); Candida krusei Not Reported Not Detected (NotDetected); Cneoformans/gatti Not Reported Not Detected (NotDetected); Cparapsilosis Not Reported Not Detected (NotDetected); Ctropicalis Not Reported Not Detected (NotDetected); E cloacae compx Not Reported Not Detected (NotDetected); Efaecalis Not Reported Not Detected (NotDetected); Efaecium Not Reported Not Detected (NotDetected); Enterobacterales Not Reported Not Detected (NotDetected); Escherichia coli Not Reported Not Detected (NotDetected); H influenzae Not Reported Not Detected (NotDetected); K aerogenes Not Reported Not Detected (NotDetected); Koxytoca Not Reported Not Detected (NotDetected); Kpneumoniae grp Not Reported Not Detected (NotDetected); Lmonocyt Not Reported Not Detected (NotDetected); N meningitidis Not Reported Not Detected (NotDetected); P aeruginosa Not Reported Not Detected (NotDetected); Proteus spp Not Reported Not Detected (NotDetected); Salmonella spp Not Reported Not Detected (NotDetected); Staph lugdunensis Not Reported Not Detected (NotDetected); Staph spp. Not Reported Not Detected (NotDetected); Staphaureus Not Reported Not Detected (NotDetected); Staphepi Not Reported Not Detected (NotDetected); Stenmaltophilia Not Reported Not Detected (NotDetected); Strep agal(GrpB) Not Reported Not Detected (NotDetected); Strep pneum Not Reported Not Detected (NotDetected); Strep pyog (GrpA) Not Reported Not Detected (NotDetected); Streptococcus spp DETECTED (NotDetected)
[2025-03-30 12:39] LABS: Strep spp Not Reported DETECTED (NotDetected)
[2025-03-30] MEDS ORDERED: GABAPENTIN 100 MG CAP PO SCH (21:00)
--- NOTE | 2025-03-31 09:40 | Electrocardiogram Report ---
Test Reason : Blood Pressure : */* mmHG Vent. Rate : 107 BPM Atrial Rate : 107 BPM P-R Int : 178 ms QRS Dur : 84 ms QT Int : 338 ms P-R-T Axes : 39 18 1 degrees QTcB Int : 451 ms Sinus tachycardia with Premature ventricular complexes Otherwise normal ECG When compared with ECG of 08-Nov-2021 00:21, Premature ventricular complexes are now Present Confirmed by Warren Rosado ([id number]) on 03/31/2025 9:40:22 AM Referred By: Claudio Matthew Confirmed By: Warren Rosado
== END 2025-03-30 04:23 | disposition left against medical advice (07) | DRG 541 ==
LOC: ED 16:04 → SUATTDRO 21:24 → 2S 21:24